=== PATIENT | female | born 1965 | race Caucasian/White ===

== ENCOUNTER 2017-09-25 14:36 | Emergency (ER) | payer MEDICAID, OTHER ==
[2017-09-25] MEDS ORDERED: SODIUM CHLORIDE 0.9% 500 ML IV STA (14:56)
[2017-09-25] MEDS ORDERED: RX INFO: IV CONTRAST WAS GIVEN 1 EACH MISC MISCELLANE PRN (14:56)
[2017-09-25] MEDS ORDERED: SODIUM CHLORIDE 0.9% 1,000 ML IV STA (14:56)
[2017-09-25] MEDS ORDERED: MORPHINE SULFATE 2 MG/ML SYRINGE IV STA (14:56)
[2017-09-25] MEDS ORDERED: ONDANSETRON 4 MG/2 ML VIAL IVP STA (14:56)
[2017-09-25 15:15] LABS: Appearance,Urine Cloudy (Clear); Bacteria,Urine Few /hpf; Bilirubin,Urine Negative (Negative); Blood,Urine Moderate (Negative); Color,Urine Yellow; Glucose,Urine (UA) Negative (Negative); Ketones,Urine 1+ (Negative); Leukocyte Esterase,Urine Large (Negative); Mucus,Urine Few /hpf; Nitrite,Urine Negative (Negative); PH, Urine 5.5 (5.0-8.0); Protein,Urine 1+ (Negative); RBC,Urine 51 /hpf (0-5); Specific Gravity,Urine 1.028 (1.001-1.035); Squamous Epithelial Cell,Urine 16 /hpf (0-4); Urobilinogen,Urine <2.0 mg/dL (<2.0); WBC,Urine >182 /hpf (0-5)
[2017-09-25 15:38] LABS: Basophils % (A) 0 %; Eosinophils % (A) 0 %; HCT 38.1 % (34.0-46.0); HGB 12.7 gm/dL (11.4-16.0); Lymphocytes % (A) 8 %; MCH 27.5 pg (25.0-35.0); MCHC 33.2 g/dL (31.0-37.0); MCV 82.6 fL (80.0-100.0); Mean Platelet Volume 8.1; Monocytes # (A) 0.5 k/uL (0-1.0); Monocytes % (A) 4 %; Neutrophils # (A) 10.2 k/uL (1.3-7.7); Neutrophils % (A) 87 %; Platelet Count 275 k/uL (150-450); RBC 4.62 m/uL (3.80-5.40); RDW 15.4 % (11.5-15.5); WBC 11.8 k/uL (3.8-10.6)
[2017-09-25 15:48] LABS: ALT 44 U/L (9-52); AST 25 U/L (14-36); Albumin 4.7 g/dL (3.5-5.0); Alkaline Phosphatase 68 U/L (38-126); Amylase 62 U/L (30-110); Anion Gap 13 mmol/L; Blood Urea Nitrogen 22 mg/dL (7-17); Calcium 10.5 mg/dL (8.4-10.2); Carbon Dioxide 25 mmol/L (22-30); Chloride 102 mmol/L (98-107); Glucose 132 mg/dL (74-99); Lipase 30 U/L (23-300); Potassium 3.8 mmol/L (3.5-5.1); Sodium 140 mmol/L (137-145); Total Bilirubin 0.4 mg/dL (0.2-1.3); Total Protein 7.9 g/dL (6.3-8.2)
--- NOTE | 2017-09-25 16:05 | CT ---
EXAMINATION TYPE: CT abdomen pelvis w con DATE OF EXAM: 09/25/2017 HISTORY: Lower abd pain and urine retention x2 days CT DLP: 1602mGycm Automated Exposure Control for Dose Reduction was Utilized. CONTRAST: CT scan of the abdomen and pelvis is performed without oral but with IV Contrast, patient injected wi th 100ml mL of Omnipaque 300. COMPARISON: None. FINDINGS: LUNG BASES: No significant abnormality is appreciated. LIVER/GB: There are few subcentimeter low dense lesions scattered throughout the liver, they are too small to further characterize but presumed benign. PANCREAS: No significant abnormality is seen. SPLEEN: No significant abnormality is seen. ADRENALS: No significant abnormality is seen. KIDNEYS: There is simple appearing 2.2 cm cyst laterally mid pole level right kidney coronal image 66 . There is 11 mm mm calculus lower pole level right kidney coronal image 52. There is 7 mm calculus i n distal left ureter coronal image 56 that is causing mild to moderate left-sided pyelocaliectasis an d proximal hydroureter. Delayed excretion left kidney is noted. No right-sided hydronephrosis is pres ent. No intraluminal calculus in poorly distended bladder is seen. There is additional 2 mm nonobstru cting calculus posteriorly upper pole level left kidney seen best coronal image 60. BOWEL: A small hiatal hernia is present. There is no suspicious small or large bowel dilatation. UTERUS/ADNEXA: No gross abnormality seen. LYMPH NODES: No greater than 1cm abdominal or pelvic lymph nodes are appreciated. OSSEOUS STRUCTURES: No significant abnormality is seen. OTHER: No significant additional abnormality is seen. IMPRESSION: There is obstructing 7 mm calculus distal left ureter causing mild to moderate left-side d hydronephrosis and delayed excretion from left kidney.
[2017-09-25] MEDS ORDERED: cefTRIAXone IN SWFI 2,000 MG/20 ML SYRINGE IVP STA (16:09)
[2017-09-25] MEDS ORDERED: KETOROLAC 30 MG/ML 1 ML VIAL IM STA (16:23)
[2017-09-25] MEDS ORDERED: HYDROmorphone 1 MG/ML 1 ML SYRINGE IVP STA ×2 (17:07→17:24)
--- NOTE | 2017-09-25 17:39 | ED ---
General Adult HPI - General Chief complaint: Abdominal Pain Stated complaint: abdominal pain Time Seen by Provider: 09/25/17 14:43 Source: patient, RN notes reviewed, old records reviewed Mode of arrival: ambulatory Limitations: no limitations - History of Present Illness Initial comments: This is a 51-year-old female to the ER for evaluation. This patient presents today for evaluation regarding abdominal pain severe bowel pain going pain left flank pain. No prior history of similar pain. No surgical history, patient does have recent tubal ligation, patient denies any bowel or bladder issues. Mild nausea no vomiting. Patient states she's had urge to urinate but feels like she can't, she is having urination no blood. No modifying factors for pain - Related Data Home Medications Medication Instructions Recorded Confirmed Ascorbic Acid [Vitamin C] 1,000 mg PO DAILY 09/25/17 09/25/17 Calcium Carbonate/Vitamin D3 1 tab PO DAILY 09/25/17 09/25/17 [Calcium 600-Vit D3 200 Tablet] Hydrochlorothiazide [Hydrodiuril] 25 mg PO DAILY 09/25/17 09/25/17 Metoprolol Tartrate [Lopressor] 50 mg PO BID 09/25/17 09/25/17 Multivitamins, Thera [Multivitamin 1 tab PO DAILY 09/25/17 09/25/17 (formulary)] Allergies Allergy/AdvReac Type Severity Reaction Status Date / Time No Known Allergies Allergy Verified 09/25/17 15:15 Review of Systems ROS Statement: Those systems with pertinent positive or pertinent negative responses have been documented in the HPI. ROS Other: All systems not noted in ROS Statement are negative. Past Medical History Past Medical History: Hypertension History of Any Multi-Drug Resistant Organisms: None Reported Additional Past Surgical History / Comment(s): eye Past Psychological History: No Psychological Hx Reported Smoking Status: Never smoker Past Alcohol Use History: None Reported Past Drug Use History: None Reported General Exam Limitations: no limitations General appearance: alert, in no apparent distress, anxious Head exam: Present: atraumatic, normocephalic, normal inspection Eye exam: Present: normal appearance, PERRL, EOMI. Absent: scleral icterus, conjunctival injection, periorbital swelling ENT exam: Present: normal exam, mucous membranes moist Neck exam: Present: normal inspection. Absent: tenderness, meningismus, lymphadenopathy Respiratory exam: Present: normal lung sounds bilaterally. Absent: respiratory distress, wheezes, rales, rhonchi, stridor Cardiovascular Exam: Present: regular rate, normal rhythm, normal heart sounds. Absent: systolic murmur, diastolic murmur, rubs, gallop, clicks GI/Abdominal exam: Present: soft, normal bowel sounds. Absent: distended, tenderness, guarding, rebound, rigid Extremities exam: Present: normal inspection, full ROM, normal capillary refill. Absent: tenderness, pedal edema, joint swelling, calf tenderness Back exam: Present: normal inspection Neurological exam: Present: alert, oriented X3, CN II-XII intact Psychiatric exam: Present: normal affect, normal mood Skin exam: Present: warm, dry, intact, normal color. Absent: rash Course Vital Signs 09/25/17 14:37 Temperature 98.0 F Pulse Rate 79 Respiratory 20 Rate Blood Pressure 159/86 O2 Sat by Pulse 99 Oximetry - Reevaluation(s) Reevaluation #1: 09/25/17 17:37 Patient had significant pain kitsch despite initial medications, patient given re-dose of medications with adequate pain control Reevaluation #2: 09/25/17 17:[address] Jenkins regarding patient, will see on Saturday for treatment of kidney stone Medical Decision Making - Medical Decision Making 51 female the ER for evaluation of flank pain left-sided abdominal pain. Patient is 7 mm calculus left UPJ, patient will be discharged with follow-up with urology, patient placed on antibiotics pain control and antiemetics. - Lab Data Result diagrams: 09/25/17 15:15 09/25/17 15:15 Lab Results 09/25/17 09/25/17 09/25/17 Range/Units 14:44 15:15 15:15 WBC 11.8 H (3.8-10.6) k/uL RBC 4.62 (3.80-5.40) m/uL Hgb 12.7 (11.4-16.0) gm/dL Hct 38.1 (34.0-46.0) % MCV 82.6 (80.0-100.0) fL MCH 27.5 (25.0-35.0) pg MCHC 33.2 (31.0-37.0) g/dL RDW 15.4 (11.5-15.5) % Plt Count 275 (150-450) k/uL Neutrophils % 87 % Lymphocytes % 8 % Monocytes % 4 % Eosinophils % 0 % Basophils % 0 % Neutrophils # 10.2 H (1.3-7.7) k/uL Lymphocytes # 1.0 (1.0-4.8) k/uL Monocytes # 0.5 (0-1.0) k/uL Eosinophils # 0.0 (0-0.7) k/uL Basophils # 0.0 (0-0.2) k/uL Sodium 140 (137-145) mmol/L Potassium 3.8 (3.5-5.1) mmol/L Chloride 102 (98-107) mmol/L Carbon Dioxide 25 (22-30) mmol/L Anion Gap 13 mmol/L BUN 22 H (7-17) mg/dL Creatinine 0.95 (0.52-1.04) mg/dL Est GFR (MDRD) Af Amer >60 (>60 ml/min/1.73 sqM) Est GFR (MDRD) Non-Af >60 (>60 ml/min/1.73 sqM) Glucose 132 H (74-99) mg/dL Plasma Lactic Acid Ankit (0.7-2.0) mmol/L Calcium 10.5 H (8.4-10.2) mg/dL Total Bilirubin 0.4 (0.2-1.3) mg/dL AST 25 (14-36) U/L ALT 44 (9-52) U/L Alkaline Phosphatase 68 (38-126) U/L Total Protein 7.9 (6.3-8.2) g/dL Albumin 4.7 (3.5-5.0) g/dL Amylase 62 (30-110) U/L Lipase 30 (23-300) U/L Urine Color Yellow Urine Appearance Cloudy H (Clear) Urine pH 5.5 (5.0-8.0) Ur Specific [place] 1.028 (1.001-1.035) Urine Protein 1+ H (Negative) Urine Glucose (UA) Negative (Negative) Urine Ketones 1+ H (Negative) Urine Blood Moderate H (Negative) Urine Nitrite Negative (Negative) Urine Bilirubin Negative (Negative) Urine Urobilinogen <2.0 (<2.0) mg/dL Ur Leukocyte Esterase Large H (Negative) Urine RBC 51 H (0-5) /hpf Urine WBC >182 H (0-5) /hpf Ur Squamous Epith Cells 16 H (0-4) /hpf Urine Bacteria Few H (None) /hpf Urine Mucus Few H (None) /hpf 09/25/17 Range/Units 15:15 WBC (3.8-10.6) k/uL RBC (3.80-5.40) m/uL Hgb (11.4-16.0) gm/dL Hct (34.0-46.0) % MCV (80.0-100.0) fL MCH (25.0-35.0) pg MCHC (31.0-37.0) g/dL RDW (11.5-15.5) % Plt Count (150-450) k/uL Neutrophils % % Lymphocytes % % Monocytes % % Eosinophils % % Basophils % % Neutrophils # (1.3-7.7) k/uL Lymphocytes # (1.0-4.8) k/uL Monocytes # (0-1.0) k/uL Eosinophils # (0-0.7) k/uL Basophils # (0-0.2) k/uL Sodium (137-145) mmol/L Potassium (3.5-5.1) mmol/L Chloride (98-107) mmol/L Carbon Dioxide (22-30) mmol/L Anion Gap mmol/L BUN (7-17) mg/dL Creatinine (0.52-1.04) mg/dL Est GFR (MDRD) Af Amer (>60 ml/min/1.73 sqM) Est GFR (MDRD) Non-Af (>60 ml/min/1.73 sqM) Glucose (74-99) mg/dL Plasma Lactic Acid Ankit 1.7 (0.7-2.0) mmol/L Calcium (8.4-10.2) mg/dL Total Bilirubin (0.2-1.3) mg/dL AST (14-36) U/L ALT (9-52) U/L Alkaline Phosphatase (38-126) U/L Total Protein (6.3-8.2) g/dL Albumin (3.5-5.0) g/dL Amylase (30-110) U/L Lipase (23-300) U/L Urine Color Urine Appearance (Clear) Urine pH (5.0-8.0) Ur Specific [place] (1.001-1.035) Urine Protein (Negative) Urine Glucose (UA) (Negative) Urine Ketones (Negative) Urine Blood (Negative) Urine Nitrite (Negative) Urine Bilirubin (Negative) Urine Urobilinogen (<2.0) mg/dL Ur Leukocyte Esterase (Negative) Urine RBC (0-5) /hpf Urine WBC (0-5) /hpf Ur Squamous Epith Cells (0-4) /hpf Urine Bacteria (None) /hpf Urine Mucus (None) /hpf - Radiology Data Radiology results: report reviewed (CT abdomen and pelvis positive for kidney stone left-sided 7 mm), image reviewed Disposition Clinical Impression: Abdominal pain, Calculus of left kidney Disposition: HOME SELF-CARE Condition: Good Instructions: Kidney Stones (ED), Flank Pain (ED) Referrals: Albert Tee MD [STAFF PHYSICIAN] - 1-2 days
[2017-09-25 17:55] VITALS: BP 129/60; PULSE 89; RESP 18; TEMP 98.6
== END 2017-09-25 17:55 | disposition home or self-care (01) ==
LOC: EC 14:36
DX: N20.0 Calculus of kidney (principal); I10 Essential (primary) hypertension; Z79.899 Other long term (current) drug therapy
CPT/HCPCS: 99285; 96374; 96375 ×3; 96372; 96361 ×2; 51798; 36415; 80053; 82150; 83605; 83690; 85025; 81001; 87086; 74177; J2405; J0696; J1885; J2270; J1170; Q9967

== ENCOUNTER → 2018-11-07 | Outpatient (CLI) | payer MEDICAID ==
--- NOTE | 2018-11-10 10:26 | MM ---
Reason for exam: screening (asymptomatic). Last mammogram was performed 2 years and 10 months ago. Physical Findings: A clinical breast exam by your physician is recommended on an annual basis and results should be correlated with mammographic findings. MG 3D Screening Mammo W/Cad Bilateral CC and MLO view(s) were taken. Prior study comparison: January 10, 2016, bilateral MG 3d screening mammo w/cad. November 22, 2009, bilateral digital screening mammogram. The breast tissue is heterogeneously dense. This may lower the sensitivity of mammography. There are benign appearing vascular calcifications in the right breast. There is no discrete abnormality. ASSESSMENT: Benign, BI-RAD 2 RECOMMENDATION: Routine screening mammogram of both breasts in 1 year.
== END | disposition home or self-care (01) ==
LOC: RADMAMWWP 08:28
PROVIDERS: ATTEND Family Medicine
DX: Z12.31 Encounter for screening mammogram for malignant neoplasm of breast (principal)
CPT/HCPCS: 77063; 77067

== ENCOUNTER → 2020-03-01 | Outpatient (CLI) | payer MEDICAID ==
--- NOTE | 2020-03-03 11:16 | MM ---
Reason for exam: screening (asymptomatic). Last mammogram was performed 1 year and 4 months ago. History: Patient is postmenopausal. Physical Findings: A clinical breast exam by your physician is recommended on an annual basis and results should be correlated with mammographic findings. MG 3D Screening Mammo W/Cad Bilateral CC and MLO view(s) were taken. XCCL view(s) were taken of the left breast. Prior study comparison: November 07, 2018, bilateral MG 3d screening mammo w/cad. January 10, 2016, bilateral MG 3d screening mammo w/cad. The breast tissue is heterogeneously dense. This may lower the sensitivity of mammography. There are benign appearing vascular calcifications bilaterally. There is no discrete abnormality. ASSESSMENT: Benign, BI-RAD 2 RECOMMENDATION: Routine screening mammogram of both breasts in 1 year.
== END | disposition home or self-care (01) ==
LOC: RADMAMWWP 07:18
PROVIDERS: ATTEND Family Medicine
DX: Z12.31 Encounter for screening mammogram for malignant neoplasm of breast (principal)
CPT/HCPCS: 77063; 77067

== ENCOUNTER → 2022-01-12 | Outpatient (CLI) | payer MEDICAID ==
--- NOTE | 2022-01-15 12:03 | MM ---
Reason for exam: screening (asymptomatic). Last mammogram was performed 1 year and 10 months ago. History: Patient is postmenopausal. Physical Findings: A clinical breast exam by your physician is recommended on an annual basis and results should be correlated with mammographic findings. MG 3D Screening Mammo W/Cad Bilateral CC and MLO view(s) were taken. Prior study comparison: March 01, 2020, bilateral MG 3d screening mammo w/cad. November 07, 2018, bilateral MG 3d screening mammo w/cad. The breast tissue is heterogeneously dense. This may lower the sensitivity of mammography. No significant changes when compared with prior studies. ASSESSMENT: Benign, BI-RAD 2 RECOMMENDATION: Routine screening mammogram of both breasts in 1 year.
== END | disposition home or self-care (01) ==
LOC: RADMAMWWP 07:00
PROVIDERS: ATTEND Family Medicine
DX: Z12.31 Encounter for screening mammogram for malignant neoplasm of breast (principal)
CPT/HCPCS: 77063; 77067

== ENCOUNTER → 2023-01-29 | Outpatient (CLI) | payer MEDICAID ==
[2023-01-29 12:55] LABS: Appearance,Urine Clear (Clear); Bilirubin,Urine Negative (Negative); Blood,Urine Negative (Negative); Color,Urine Yellow (Yellow); Ketones,Urine Negative (Negative); Nitrite,Urine Negative (Negative); PH, Urine 7.5 (5.0-8.0); Specific Gravity,Urine 1.012 (1.001-1.030); Urobilinogen,Urine 0.2 (0.2,1.0)
[2023-01-29 14:16] LABS: HCT 40.2 % (37.2-46.3); HGB 13.4 g/dL (12.0-15.0); MCH 29.6 pg (27.0-32.0); MCHC 33.3 g/dL (32.0-37.0); MCV 88.9 fL (80.0-97.0); Mean Platelet Volume 11.4 fL (9.5-12.2); NRBC Per 100 WBC 0 /100 WBCS (0.0-0.0); Platelet Count 222 X 10*3/uL (140-440); RBC 4.52 X 10*6/uL (4.10-5.20); RDW 12.5 % (11.5-14.5); WBC 4.39 X 10*3/uL (4.50-10.00)
[2023-01-29 14:42] LABS: African American GFR (CKD) 88.1 (60.0-200.0); Anion Gap 11.3 mmol/L (10.00-18.00); BUN/Creat Ratio 20.12 Ratio (12.00-20.00); Blood Urea Nitrogen 17.2 mg/dL (9.0-27.0); Calcium 9.8 mg/dL (8.7-10.3); Carbon Dioxide 30.1 mmol/L (20.0-27.5); Non-African American GFR(CKD) 76.1 (60.0-200.0); Potassium 3.7 mmol/L (3.5-5.5)
== END | disposition home or self-care (01) ==
LOC: LABPAT 07:26
PROVIDERS: ATTEND Urology
DX: Z01.818 Encounter for other preprocedural examination (principal); I10 Essential (primary) hypertension; I44.0 Atrioventricular block, first degree; N39.3 Stress incontinence (female) (male); R00.1 Bradycardia, unspecified; R35.0 Frequency of micturition; Z79.899 Other long term (current) drug therapy
CPT/HCPCS: 36415; 80048; 81003; 85027; 87086; 93005

== ENCOUNTER 2023-02-06 05:50 | Day surgery (SDC) | payer MEDICAID ==
[2023-01-31 11:36] VITALS: BMI 26.9
--- NOTE | 2023-02-05 09:35 | HP ---
HISTORY AND PHYSICAL An H and P for surgery tomorrow. HISTORY OF PRESENT ILLNESS: This is a 57-year-old female, 3, para 3-0-0-3, who presented with an increasing perineal bulge and urinary incontinence. The patient saw Dr. Davila who suggested a sling procedure in addition to our planned vaginal hysterectomy and anterior repair. The patient is still sexually active. She denies issues with bowel movements. She has a bulge that is now protruding into her undergarments and is requesting surgical repair, declining option for pessary. PAST MEDICAL HISTORY: Significant for anxiety, hypertension, thyroid disease, prediabetes. PAST SURGICAL HISTORY: Parathyroidectomy in 2011, tubal ligation in 1994. CURRENT MEDICATIONS: 1. Alprazolam 0.25 mg t.i.d. 2. Hydrochlorothiazide 50 mg daily. 3. Metoprolol tartrate 50 mg twice daily with meals. 4. Multivitamin daily. 5. Vitamin D daily. 6. Ropinirole 0.25 mg tablets orally 1 hour before bedtime. FAMILY HISTORY: Significant for diabetes and hypertension. REPRODUCTIVE HISTORY: Normal spontaneous vaginal deliveries x3, all healthy full-term infants. SOCIAL HISTORY: The patient has never been a smoker, she drinks alcohol rarely, she is single. PHYSICAL EXAMINATION: VITAL SIGNS: The patient is 5 feet 7.5 inches, 170 pounds, BMI 26, blood pressure 140/90. HEENT: Reveals no thyromegaly, no cervical lymphadenopathy, trachea midline, neck is soft and supple. BREASTS: Reveals the breasts to be bilaterally symmetric, no skin changes, nipple discharge, axillary adenopathy, or obvious masses. CHEST: Clear to auscultation in all jain anteriorly and posteriorly. CARDIAC: Reveals regular rate and rhythm with no murmur, click, or rub. ABDOMEN: Soft, nontender, no organosplenomegaly, active bowel sounds. EXTREMITIES: Reveal no edema, good range of motion in the lower extremities, good peripheral pulses. PELVIC: External genitalia are well estrogenized, cervix is multiparous, Pap smear is up to date and normal. There is a grade 3 uterine prolapse noted along with a midline cystocele. No obvious rectocele. FIT negative stool sample. Good sphincter tone. The patient is alert and oriented x3. IMPRESSION: Increasingly symptomatic uterine prolapse and cystocele, with genuine stress urinary incontinence, presenting for vaginal hysterectomy, possible bilateral salpingo- oophorectomy, anterior colporrhaphy, and sling procedure with Dr. Tee. PLAN: I have reviewed with the patient the risks, benefits, and alternatives to surgical repair, including bleeding, infection, perforation or damage to bowel, bladder, ureters, blood vessels, or indeed any pelvic or abdominal organs. Risks of the anesthesia have also been discussed, aspiration, nerve damage, or even . All questions answered. The ACOG pamphlet on repair had been given to the patient and reviewed. MMODL / IJN: [id number] /
--- NOTE | 2023-02-05 19:15 | P.GSHP ---
History of Present Illness H&P Date: 02/05/23 57 yo female with vaginal prolapse and stress urinary incontinence who comes for vaginal hysterectomy, ap repair[Dr Gray], TOT with lynx graft [ Dr Tee]. THe risks, complications and alternatives have been discussed. THe MESH controversy was discussed understood and accepted. Past Medical History Past Medical History: Eye Disorder, Hypertension Additional Past Medical History / Comment(s): hx kidney stones. RLS. MACULAR DEGENERATION-BILAT. PROLAPSED UTERUS History of Any Multi-Drug Resistant Organisms: None Reported Past Surgical History: Tubal Ligation Additional Past Surgical History / Comment(s): parathyroid gland/nodule removed, lithotripsy, surgery for plugged tear duct, Past Anesthesia/Blood Transfusion Reactions: Motion Sickness, Postoperative Nausea & Vomiting (PONV) Smoking Status: Never smoker - Past Family History Brother(s) Family Medical History: Cancer Additional Family Medical History / Comment(s): prostate Father Family Medical History: Cancer Additional Family Medical History / Comment(s): prostate Medications and Allergies Home Medications Medication Instructions Recorded Confirmed Type Ascorbic Acid [Vitamin C] 1,000 mg PO DAILY 09/25/17 01/31/23 History Metoprolol Tartrate [Lopressor] 50 mg PO BID 09/25/17 01/31/23 History Multivitamins, Thera [Multivitamin 1 tab PO DAILY 09/25/17 01/31/23 History (formulary)] hydroCHLOROthiazide [Hydrodiuril] 25 mg PO DAILY 09/25/17 01/31/23 History Cholecalciferol [Vitamin D3] 400 unit PO DAILY 04/11/18 01/31/23 History Retinavites #2 1 tab PO BID 01/31/23 History rOPINIRole HCL 0.25 mg PO HS 01/31/23 01/31/23 History Allergies Allergy/AdvReac Type Severity Reaction Status Date / Time No Known Allergies Allergy Verified 01/31/23 11:25 Surgical - Exam - General well developed, well nourished, no distress - Genitourinary cysto rectocele, hypermobile urethra Assessment and Plan Assessment: Impression: vaginal prolapse, stress urinary incontinence. Plan: vaginal hysterectomy with AP repair[ dr gray]. transobturator tape with cysto[ dr tee]
[~2023-02-06 05:50] MED LIST: AMPICILLIN 1,000 MG in SODIUM CHLORIDE 0.9% 50 ML IVPB PRN
[2023-02-06] MEDS ORDERED: HYDROmorphone 0.5 MG/0.5 ML SYRINGE IVP PRN (06:10)
[2023-02-06] MEDS ORDERED: LACTATED RINGERS 1,000 ML IV ONE ×2 (06:10→08:42)
[2023-02-06] MEDS ORDERED: ONDANSETRON 4 MG/2 ML VIAL IVP ONE (06:10)
[2023-02-06] MEDS ORDERED: DEXAMETHASONE SOD PHOSPHATE 4 MG/ML 1 ML VIAL IV ONE (06:10)
[2023-02-06] MEDS ORDERED: fentaNYL (PF) 50 MCG/1 ML VIAL IVP ONE (06:55)
[2023-02-06] MEDS ORDERED: MIDAZOLAM 2 MG/2 ML VIAL IVP ONE (06:55)
[2023-02-06] MEDS ORDERED: BACITRACIN ZINC 500 UNIT/GM OINT 28.4 GM TUBE TOPICAL ONE (07:36)
[2023-02-06] MEDS ORDERED: MIDAZOLAM 2 MG/2 ML VIAL ONE (07:40)
[2023-02-06] MEDS ORDERED: LIDOCAINE 2% INJ 20 MG/ML (2 ML VIAL) ONE (07:40)
[2023-02-06] MEDS ORDERED: MORPHINE SULFATE (PF) 0.3 MG/0.3 ML SYR ONE (07:40)
[2023-02-06] MEDS ORDERED: SUCCINYLCHOLINE CHLORIDE 200 MG/10 ML VIAL IV ONE (07:40)
[2023-02-06] MEDS ORDERED: GLYCOPYRROLATE 0.2 MG/ML 2 ML VIAL ONE (07:40)
[2023-02-06] MEDS ORDERED: fentaNYL (PF) 50 MCG/ML 2 ML AMP ONE (07:40)
[2023-02-06] MEDS ORDERED: PROPOFOL 10 MG/ML 20 ML VIAL IV ONE (07:40)
[2023-02-06] MEDS ORDERED: VASOPRESSIN 20 UNIT/ML 1 ML VIAL SQ ONE (08:02)
[2023-02-06] MEDS ORDERED: VASOPRESSIN 20 UNIT in SODIUM CHLORIDE 0.9% 60 ML IV ONE (08:04)
[2023-02-06] MEDS ORDERED: GENTAMICIN 80 MG in SODIUM CHLORIDE 0.9% 500 ML 500 ML IRRIGATION ONE (08:50)
[2023-02-06] MEDS ORDERED: IBUPROFEN 600 MG TAB PO PRN (08:51)
[2023-02-06] MEDS ORDERED: diphenhydrAMINE 50 MG/ML 1 ML VIAL IVP PRN (08:51)
[2023-02-06] MEDS ORDERED: ONDANSETRON 4 MG/2 ML VIAL IVP PRN (08:51)
[2023-02-06] MEDS ORDERED: METOCLOPRAMIDE 5 MG/ML 2 ML VIAL IVP PRN (08:51)
[2023-02-06] MEDS ORDERED: SIMETHICONE 80 MG CHEWABLE PO PRN (08:51)
--- NOTE | 2023-02-06 08:51 | P.OP ---
Date of Procedure: 02/06/23 Preoperative Diagnosis: Increasingly symptomatic uterine prolapse, cystocele, stress urinary incontinence Postoperative Diagnosis: Same, normal-appearing ovaries bilaterally, small grade 1-2 rectocele Procedure(s) Performed: Vaginal hysterectomy, anterior colporrhaphy Surgeon: Stephanie Gray Publications Editor #1: Ghulam Carrillo Estimated Blood Loss (ml): 50 IV fluids (ml): 800 Urine output (ml): 100 Pathology: other (Cervix and uterus) Condition: stable Disposition: PACU Operative Findings: Normal-appearing ovaries bilaterally. Small grade 1-2 rectocele. Description of Procedure: Patient is brought to the operating suite after spinal with Duramorph is placed in the preoperative area. She's placed in the dorsal supine position and a general anesthetic is administered without difficulty. Antibiotics are given. Patient is now placed in the dorsal lithotomy position and the cervix, vagina, perineum, periurethral areas are all prepped and draped in usual sterile fashion. The appropriate timeout is performed to assure proper patient and procedural identification. The bladder is drained for approximate 100 mL of clear yellow urine. Weighted speculum placed into the vagina. Anterior lip of the cervix grasped with a double-tooth tenaculum. Cervix is injected circumferentially with a dilute Pitressin solution. A gila [place] blade scalpel is then used to incise this mucosa with A/V position at 6:00. Sponge rolled finger is used to sweep the mucosa from the underlying fascial plane. Peritoneum is entered at 6:00 with a Metzenbaum scissor. Weighted speculum was placed into the vagina after a 2-0 Vicryl stitch is placed on the mucosa and held with a hemostat. A sponge is used at all times keep the overlying mucosal well from the operative field to avoid bladder and/or ureteral injury. The right uterosacral ligament is identified, clamped cut and suture ligated, held with a hemostat. Same procedure is carried out contralaterally. The uterine vasculature is identified, clamped cut and suture ligated. 2 additional pedicles are taken superior to the vessels. Again the mucosa is swept well from the field. Uterus is then "walked out" posteriorly. Peritoneum is entered at 12:00 and Jake clamps are placed across the final pedicles. Cervix and uterus are removed and sent to pathology. The pedicles are tied in a Eileen stitch with 0 Vicryl suture, flashed, and then retied for excellent hemostasis. A sponge stick is used to visualize the ovaries bilaterally, they are high in the pelvis and appeared to be within normal limits, left in situ per the patient's wishes. The speculum is changed now to the shallow billed speculum and the 2-0 Vicryl suture at 6:00 is brought around in a pursestring fashion to close the peritoneum. The uterosacral cardinal ligaments are brought across to incorporate the opposite ligament as well as vaginal mucosa. 2 additional [id number] sutures of 0 Vicryl are used in the vagina is closed. Allis clamps are now placed on the superior portion of the vaginal mucosa in this is injected in the midline with the same dilute Pitressin solution. Metzenbaum scissors are used to undermine this mucosa to approximately 1.5 cm inferior to the urethra. A sponge rolled finger is used to sweep the mucosa from the underlying fascial edge. The Cee catheter is placed in the urine is clear. 2-0 Vicryl is used in an interrupted fashion to bring the fascial edges together thereby completely reducing the cystocele. Hemostasis is excellent. Metzenbaum scissors are used to trim the redundant mucosa. Dr. Tee now is seated to complete his portion of the procedure. All sponge needle and enhancement counts are correct. Patient's vital signs are stable at the completion of my procedure, pulse 53, blood pressure 101/53.
[2023-02-06] MEDS ORDERED: NALOXONE 0.4 MG/ML 1 ML VIAL IV PRN (09:01)
--- NOTE | 2023-02-06 09:01 | P.ANPRN ---
Procedure Note - Anesthesia - Epidural/Spinal Spinal Time Out Performed: Yes Date of Procedure: 02/06/23 Procedure Start Time: 06:54 Procedure Stop Time: 07:02 Location of Patient: PreOp Indication: Acute Post-Operative Pain, Requested by Surgeon Sedation Type: Sedate with meaningful contact maintained Preparation: Sterile Prep Position: Sitting Catheter: None Needle Guage: 25 Blood Aspirated: No Pain Paresthesia on Injection Noted: No Events: Uneventful and Well Tolerated (Duramorph PF 300 mcg + Fentanyle PF 25 mcg injected intrathecally)
--- NOTE | 2023-02-06 09:22 | P.OP ---
Date of Procedure: 02/06/23 Preoperative Diagnosis: Stress urinary incontinence Postoperative Diagnosis: Same Procedure(s) Performed: Trans-obturator tape with obtyrx 2 graft, cystoscopy Anesthesia: MAGALI Surgeon: Albert Tee Estimated Blood Loss (ml): 25 Pathology: none sent Condition: stable Disposition: PACU Indications for Procedure: The patient is 57. She has vaginal prolapse and stress urinary incontinence. She comes for a vaginal hysterectomy and anterior repair by Dr. Gray and a trans-obturator tape with cystoscopy by myself Description of Procedure: The patient has previously been placed in the operating room with a general anesthetic. She's in lithotomy position. Dr. Gray has performed a vaginal hysterectomy and anterior repair. I ended the procedure. The vaginal mucosa anteriorly is still open. I dissect lateral the bladder neck bilaterally. A Cee catheter is already in place. Make 2 incisions in the inguinal crease at the level of the clitoris. I passed the TOT introducers through the inguinal incisions into the obturator foramen around the issue pubic ramus into the vaginal space bilaterally. I remove the Cee catheter performed cystoscopy of the Foroblique lens and 17-Urdu sheath. There is no evidence of bladder injury or urethral injury. I reintroduced the Cee. Attached the grafted introducers and pull the graft back through the inguinal crease bilaterally. The graft lay in the mid urethra without tension. I excised the redundant graft at the inguinal incisions. I removed the sheathing. The graft lay without tension. I closed the vaginal mucosa with a running 2-0 Vicryl. I closed the inguinal incisions with 4-0 Vicryl. A vaginal packing placed. The patient is awakened and returned recovery room good condition. The blood loss for my portion of the procedures about 25 mL. She'll be placed in the hospital postoperatively.
[2023-02-06] MEDS: KETOROLAC 15 MG/ML 1 ML VIAL IVP PRN ×2 (10:36→16:04)
[2023-02-06] MEDS: LACTATED RINGERS 1,000 ML IV SCH (10:58)
[2023-02-07 07:18] VITALS: RESP 16
[2023-02-07] MEDS: LACTATED RINGERS 1,000 ML IV SCH (07:18)
[2023-02-07 07:48] VITALS: BP 130/60; PULSE 80; TEMP 98.2
--- NOTE | 2023-02-07 07:51 | P.DS ---
Providers Date of admission: 02/06/23 Expected date of discharge: 02/07/23 Attending physician: Stephanie Gray Primary care physician: [facility] Course: This is a 57-year-old female who presented with increasingly symptomatic vaginal bulge, consistent with uterine prolapse, grade 3-4 cystocele, and genuine stress urinary incontinence. After discussion of all options patient elected to proceed with surgical repair. Please see dictated history and physicals for details. Yesterday patient underwent vaginal hysterectomy and anterior colporrhaphy, along with sling procedure and cystoscopy with Dr. Tee. She did well intr aoperatively. Ovaries appeared normal and were left in situ per her wishes. Vagina was packed with iodoform gauze, Cee catheter placed, patient did receive spinal with Duramorph prior to the procedure. Please see both dictated operative notes for details. This morning the patient is doing well. The Cee catheter and vaginal packing had been removed. She is tolerating regular diet, complains of no pain. There is only scant vaginal bleeding. We are awaiting spontaneous void and we'll check postvoid residual. Pending residual less than 100 mL patient will likely be discharged home later this morning. Patient is judged to be in very good condition for discharge home pending spontaneous void. She will follow-up in the office with Dr. Tee in 1 week, and with me in 2 weeks. I have reminded her no intercourse, tampons or douching. No heavy lifting, no driving for 1 week. She will call with any vaginal bleeding, issues with urination or defecation, with any pain not alleviated by [id number] Motrin, Advil, or Aleve, or indeed with any difficulties or concerns. Assessment: Doing well first postoperative day Patient Condition at Discharge: Good Plan - Discharge Summary New Discharge Prescriptions: No Action Multivitamins, Thera [Multivitamin (formulary)] 1 tab PO DAILY hydroCHLOROthiazide [Hydrodiuril] 25 mg PO DAILY Metoprolol Tartrate [Lopressor] 50 mg PO BID Ascorbic Acid [Vitamin C] 1,000 mg PO DAILY Cholecalciferol [Vitamin D3] 400 unit PO DAILY rOPINIRole HCL 0.25 mg PO HS Retinavites #2 1 tab PO BID Discharge Medication List Ascorbic Acid [Vitamin C] 1,000 mg PO DAILY 09/25/17 [History] Metoprolol Tartrate [Lopressor] 50 mg PO BID 09/25/17 [History] Multivitamins, Thera [Multivitamin (formulary)] 1 tab PO DAILY 09/25/17 [History] hydroCHLOROthiazide [Hydrodiuril] 25 mg PO DAILY 09/25/17 [History] Cholecalciferol [Vitamin D3] 400 unit PO DAILY 04/11/18 [History] Retinavites #2 1 tab PO BID 01/31/23 [History] rOPINIRole HCL 0.25 mg PO HS 01/31/23 [History] Follow up Appointment(s)/Referral(s): Stephanie Gray MD [STAFF PHYSICIAN] - 2 Weeks Discharge Disposition: HOME SELF-CARE
[2023-02-07] MEDS ORDERED: ACETAMINOPHEN TAB 325 MG TAB PO PRN (08:53)
--- NOTE | 2023-02-07 10:35 | P.PN ---
Progress Note - Text Progress Note Date: 02/07/23 (799) Anesthesia Postop day 1 Subjective: Status Post vaginal hysterectomy with Duramorph. Patient seen and examined. Doing well without complaint. Pain well controlled overnight. No nausea vomiting or pruritus. Afebrile. Gross lower extremity strength intact. Without apparent anesthetic complications. History obtained from .
== END 2023-02-07 09:40 | disposition home or self-care (01) ==
LOC: OR 05:50 → 4FBP 09:04 → OR 02-07 09:40
PROVIDERS: ATTEND Obstetrics & Gynecology
DX: N81.10 Cystocele, unspecified (principal); N80.03 Adenomyosis of the uterus; N39.3 Stress incontinence (female) (male); I10 Essential (primary) hypertension; K91.0 Vomiting following gastrointestinal surgery; Z87.442 Personal history of urinary calculi; Z98.51 Tubal ligation status; Z80.42 Family history of malignant neoplasm of prostate; Z79.899 Other long term (current) drug therapy; T75.3XXD Motion sickness, subsequent encounter
CPT/HCPCS: 86900; 86901; 86850; 88307; 58260; 57288; J2250; J0330; J1580; J1100; J0690; J2405; J2274; J3010 ×2; J0290; J1885; J2704; J2001

== ENCOUNTER → 2023-06-29 | Outpatient (CLI) | payer MEDICAID ==
[2023-06-29 13:47] LABS: Basophils % (A) 0.5 %; Eosinophils % (A) 2.1 %; HCT 40.5 % (37.2-46.3); HGB 13.6 d/dL (12.0-15.0); Lymphocytes # (A) 1.13 X 10*3/uL (0.90-5.00); Lymphocytes % (A) 26.5 %; MCH 29.6 pg (27.0-32.0); MCHC 33.6 d/dL (32.0-37.0); Mean Platelet Volume 10.8 FL (9.5-12.2); Monocytes # (A) 0.36 X 10*3/uL (0.20-1.00); Monocytes % (A) 8.4 %; NRBC Per 100 WBC 0 X 10*3/uL (0.00-0.01); Neutrophils # (A) 2.66 X 10*3/uL (1.80-7.70); Neutrophils % (A) 62.3 %; Platelet Count 209 X 10*3/uL (140-440); RDW 12.7 % (11.5-14.5); WBC 4.27 X 10*3/uL (4.50-10.00)
[2023-06-29 13:48] LABS: Basophils # (A) 0.02 X 10*3/uL (0.00-0.10); Eosinophils # (A) 0.09 X 10*3/uL (0.04-0.35)
[2023-06-29 14:17] LABS: ALT 17 U/L (8-44); AST 18 U/L (13-35); Albumin 4.6 d/dL (3.8-4.9); Albumin/Globulin Ratio 1.64 Ratio (1.60-3.17); Alkaline Phosphatase 60 U/L (41-126); BUN/Creat Ratio 29.75 Ratio (12.00-20.00); Blood Urea Nitrogen 23.8 mg/dL (9.0-27.0); Calcium 10.2 mg/dL (8.7-10.3); Carbon Dioxide 28.7 mmol/L (21.6-31.8); Chloride 101 mmol/L (96-109); Chol/HDL Ratio 3.57 Ratio; Globulin 2.8 d/dL (1.6-3.3); Glucose 127 mg/dL (70-110); LDL Cholesterol,Calculated 116.7 mg/dL (0.0-131.0); Sodium 141 mmol/L (135-145); Total Bilirubin 0.5 mg/dL (0.3-1.2); Total Protein 7.4 d/dL (6.2-8.2)
== END | disposition home or self-care (01) ==
LOC: LABWHC1 09:03
PROVIDERS: ATTEND Nurse Practitioner Family
DX: Z00.00 Encounter for general adult medical examination without abnormal findings (principal); I10 Essential (primary) hypertension; R73.03 Prediabetes
CPT/HCPCS: 36415; 80053; 80061; 83036; 84443; 84481; 85025

== ENCOUNTER → 2023-08-20 | Outpatient (CLI) | payer MEDICAID ==
--- NOTE | 2023-08-21 15:57 | MM ---
Reason for Exam: Screening (asymptomatic). Last mammogram was performed 1 year(s) and 8 month(s) ago. Patient History: Menarche at age 13. First Full-Term at age 22. Hysterectomy at age 57. Postmenopausal. Risk Values: Madelyn 5 year model risk: 1.1%. NCI Lifetime model risk: 7.2%. Prior Study Comparison: 11/07/2018 Bilateral Screening Mammogram, [facility]. 03/01/2020 Bilateral Screening Mammogram, [facility]. 01/12/2022 Bilateral Screening Mammogram, [facility]. Tissue Density: The breast tissue is heterogeneously dense. This may lower the sensitivity of mammography. Findings: Analyzed By CAD. Pattern appears symmetrical and stable. Chronic nodularity is in the upper outer breast. Benign vascular calcifications present bilaterally No suspicious groups of microcalcifications, spiculated or lobular masses, architectural distortion or other secondary signs of malignancy are mammographically apparent. Overall Assessment: Benign, BI-RAD 2 Management: Screening Mammogram of both breasts in 1 year. A negative mammogram report should not preclude additional follow up of suspicious palpable abnormalities. Patient should continue monthly self breast exam. A clinical breast exam by your physician is recommended on an annual basis and results should be correlated with mammographic findings. Electronically signed and approved by: Rafiq Foy D.O. Radiologis
== END | disposition home or self-care (01) ==
LOC: RADMAMWWP 08:03
PROVIDERS: ATTEND Family Medicine
DX: Z12.31 Encounter for screening mammogram for malignant neoplasm of breast (principal); Z78.0 Asymptomatic menopausal state
CPT/HCPCS: 77063; 77067